=== PATIENT | female | born 1995 | race Caucasian/White ===

== ENCOUNTER 2019-05-09 13:37 | Emergency (ER) | payer OTHER ==
[~2019-05-09] VITALS: Ht 154.9 cm; Wt 54.9 kg
[2019-05-09 13:50] VITALS: BP 102/53
--- NOTE | 2019-05-09 13:52 | NUR ---
TO LOBBY AWAITNG BED IN ED
--- NOTE | 2019-05-09 14:28 | NUR ---
PATIENT AMBULATED TO ER BED 10
--- NOTE | 2019-05-09 14:46 | NUR ---
PATIENT PRESENTS TO ED WITH C/O RT FOOT PAIN X 3 WEEKS. VISIBLE REDNESS AND SWELLING. POSITIVE CMS. DENIES INJURY/TRAUMA. DENIES N/V/D; SKIN IS PINK/WARM/DRY; AAOX4 WITH EVEN AND STEADY GAIT; PT DENIES ANY FEVER, CP, SOB, OR COUGH AT THIS TIME; PATIENT STATES PAIN OF 7/10 AT THIS TIME; VSS; PATIENT POSITIONED FOR COMFORT; HOB ELEVATED; BEDRAILS UP X2; BED DOWN.
[2019-05-09] MEDS ORDERED: ACETAMINOPHEN EXTRA STRENGTH 500 MG TAB PO ONE (15:00)
[2019-05-09] MEDS ORDERED: IBUPROFEN 400 MG TAB PO ONE (15:00)
[2019-05-09 15:16] VITALS: BP 124/61
--- NOTE | 2019-05-09 15:16 | NUR ---
Patient discharged with v/s stable. Written and verbal after care instructions given and explained. Patient alert, oriented and verbalized understanding of instructions. Ambulatory with steady gait. All questions addressed prior to discharge. ID band removed. Patient advised to follow up with PMD. Rx of ACETAMINOPHEN AND MOTRIN given. Patient educated on indication of medication including possible reaction and side effects. Opportunity to ask questions provided and answered.
== END 2019-05-09 15:16 | disposition home or self-care (01) ==
LOC: MED 13:37
DX: M21.611 Bunion of right foot (principal)
CPT/HCPCS: 73630; 99283

== ENCOUNTER 2019-05-24 09:42 | Emergency (ER) | payer OTHER ==
[~2019-05-24] VITALS: Ht 156.2 cm; Wt 55.8 kg
[2019-05-24 09:49] VITALS: BP 101/57
--- NOTE | 2019-05-24 09:58 | NUR ---
23/F BIB SELF C/O LEFT UPPER ARM WITH SWELLING WARMTH, PAIN 6/10 THROBBING S/P BEE STING X YESTERDAY. DENIES SOB, THROAT EDEMA, CHEST PAIN, N/V. PATIENT POSITIONED FOR COMFORT; HOB ELEVATED; BEDRAILS UP X1; BED DOWN. ER MD MADE AWARE OF PT STATUS.
--- NOTE | 2019-05-24 10:05 | NUR ---
Patient being evaluated by DR CHRISTIAN at bedside.
[2019-05-24] MEDS ORDERED: FAMOTIDINE 20 MG TAB PO ONE (10:20)
[2019-05-24] MEDS ORDERED: hydrOXYzine HCL 25 MG TAB PO ONE (10:20)
[2019-05-24] MEDS ORDERED: predniSONE 20 MG TAB PO ONE (10:20)
[2019-05-24 10:45] VITALS: BP 101/57
--- NOTE | 2019-05-24 10:45 | NUR ---
Patient discharged with v/s stable. Written and verbal after care instructions given and explained. Patient alert, oriented and verbalized understanding of instructions. Ambulatory with steady gait. All questions addressed prior to discharge. ID band removed. Patient advised to follow up with PMD. Rx of PEPCID, ATARAX given. Patient educated on indication of medication including possible reaction and side effects. Opportunity to ask questions provided and answered.
== END 2019-05-24 10:51 | disposition home or self-care (01) ==
LOC: MED 09:42
DX: T63.441A Toxic effect of venom of bees, accidental (unintentional), initial encounter (principal); Y92.89 Other specified places as the place of occurrence of the external cause
CPT/HCPCS: 99284; J7512

== ENCOUNTER 2019-08-28 09:21 | Emergency (ER) | payer OTHER ==
[~2019-08-28] VITALS: Ht 152.4 cm; Wt 54.4 kg
[2019-08-28 09:43] VITALS: BP 104/53
[2019-08-28 11:07] VITALS: BP 104/53
== END 2019-08-28 11:08 | disposition home or self-care (01) ==
LOC: MED 09:21
DX: J11.1 Influenza due to unidentified influenza virus with other respiratory manifestations (principal)
CPT/HCPCS: 71045; 87804; 99284; Q0092

== ENCOUNTER 2020-08-12 16:11 | Emergency (ER) | payer OTHER, SELFPAY ==
[~2020-08-12] VITALS: Ht 165.1 cm; Wt 47.6 kg
[2020-08-12 16:20] VITALS: BP 97/59
--- NOTE | 2020-08-12 16:23 | NUR ---
C/O SORE THROAT,FEVER , BODY ACHESX TODAY. PMH: DENIES.
--- NOTE | 2020-08-12 17:05 | NUR ---
COVID & STREP SWAB COLLECTED.
[2020-08-12 17:11] VITALS: BP 97/59
--- NOTE | 2020-08-12 17:11 | NUR ---
Patient discharged with v/s stable. Written and verbal after care instructions given and explained. Patient alert, oriented and verbalized understanding of instructions. Ambulatory with steady gait. All questions addressed prior to discharge. ID band removed. Patient advised to follow up with PMD. Rx of AMOXICILLIN & IBUPROFEN given. Patient educated on indication of medication including possible reaction and side effects. Opportunity to ask questions provided and answered.
== END 2020-08-12 17:11 | disposition home or self-care (01) ==
LOC: MED 16:11
DX: J02.9 Acute pharyngitis, unspecified (principal); R50.9 Fever, unspecified; R07.0 Pain in throat; Z20.828 Contact with and (suspected) exposure to other viral communicable diseases
CPT/HCPCS: 99283; U0003

== ENCOUNTER 2020-08-27 09:36 | Emergency (ER) | payer OTHER, SELFPAY ==
[~2020-08-27] VITALS: Ht 154.9 cm; Wt 50.3 kg
[2020-08-27 09:51] VITALS: BP 112/55
[2020-08-27 10:31] VITALS: BP 112/71
== END 2020-08-27 10:31 | disposition home or self-care (01) ==
LOC: MED 09:36
DX: U07.1 COVID-19 (principal)
CPT/HCPCS: 99283; U0003

== ENCOUNTER 2021-07-06 14:33 | Emergency (ER) | payer MEDICAID, OTHER, SELFPAY ==
[~2021-07-06] VITALS: Ht 154.9 cm; Wt 51.3 kg
[2021-07-06 14:50] VITALS: BP 132/69
--- NOTE | 2021-07-06 15:26 | NUR ---
[place] AND [place]U SWABS COLLECTED AND WALKED TO LAB.
[2021-07-06] MEDS ORDERED: AZIT250T4 PO (16:03)
[2021-07-06] MEDS ORDERED: NAPR-54 PO (16:03)
[2021-07-06] MEDS ORDERED: PROM118S5 PO (16:03)
[2021-07-06 16:15] VITALS: BP 132/69
--- NOTE | 2021-07-06 16:15 | NUR ---
NO NURSING INTERVENTIONS PROVIDED
--- NOTE | 2021-07-06 16:15 | NUR ---
Patient discharged with v/s stable. Written and verbal after care instructions ABOUT INFLUENZA given and explained. Patient alert, oriented and verbalized understanding of instructions. Ambulatory with steady gait. All questions addressed prior to discharge. ID band removed. Patient advised to follow up with PMD. Rx of ZITHROMAX Z PACK, NAPROSYN AND PROMETHAZINE-DM SYRUP given. Patient educated on indication of medication including possible reaction and side effects. Opportunity to ask questions provided and answered.
== END 2021-07-06 16:15 | disposition home or self-care (01) ==
LOC: MED 14:33
DX: J10.1 Influenza due to other identified influenza virus with other respiratory manifestations (principal); Z20.822 Contact with and (suspected) exposure to COVID-19; Z79.2 Long term (current) use of antibiotics; Z79.1 Long term (current) use of non-steroidal anti-inflammatories (NSAID); Z79.899 Other long term (current) drug therapy
CPT/HCPCS: 87804; 99283